=== PATIENT | female | born 1960 | race Caucasian/White ===

== ENCOUNTER 2017-03-17 07:26 | Day surgery (SDC) | payer OTHER ==
[~2017-03-17 07:26] MED LIST: FENTANYL 250 MCG/5 ML AMP IV PRN; LACTATED RINGERS 1,000 ML IV SCH; MIDAZOLAM HCL 5 MG/5 ML VIAL IV PRN
[2017-03-17] MEDS ORDERED: IV START KIT ONE (07:32)
[2017-03-17] MEDS ORDERED: SODIUM CHLORIDE 0.9% 1,000 ML ONE (07:49)
[2017-03-17] MEDS ORDERED: SODIUM CHLORIDE 0.9% 1,000 ML IV SCH (08:00)
--- NOTE | 2017-03-19 09:32 | SURGPATH ---
[facility] [address] [place] [id number] Patient Name: ANIBAL ALARCON MR#: [id number] : 1960 Gender: F Specimen #: [id number] Collected: 03/17/2017 Received: 03/18/2017 Reported: 03/19/2017 Submitting Phys: SADAF TRIVEDI Copy To Phys: [facility] RAMILA VALDEZ Clinical History / Pre-Operative Diagnosis: History of colon polyps; change in bowel pattern; family history of colon polyps and CA Specimen Source / Surgical Procedure Performed: #1-sigmoid polyp at 22 cm; #2-descending colon polyp at 45 cm; #3-midtransverse colon polyp; #4-sigmoid polyp at 10 cm Interpretation: 1, 2, 3. SIGMOID POLYP AT 22 CM, DESCENDING COLON POLYP AT 45 CM, MID TRANSVERSE COLON POLYP, BIOPSIES: - HYPERPLASTIC POLYPS 4. SIGMOID COLON POLYP AT 10 CM, BIOPSY: - NO PATHOLOGIC DIAGNOSIS Electronically Signed Out Micah Jaquez M.D. Gross Description: #1 The specimen is received in a formalin filled container labeled with the patient's name and "sigmoid polyp at 22 cm". A polypoid weiss biopsy is 0.5 x 0.3 x 0.3 cm. Bisected. Totally embedded in cassette #1. #2 The specimen is received in a formalin filled container labeled with the patient's name and "descending colon polyp at 45 cm". Two polypoid weiss biopsies are 0.4 x 0.3 x 0.1 cm and 0.5 x 0.4 x 0.4 cm. The larger polyp is bisected. Totally embedded in cassette #2. #3 The specimen is received in a formalin filled container labeled with the patient's name and "mid transverse colon polyp". A polypoid weiss biopsy is 0.5-0.3 x 0.3 cm. Bisected. Totally embedded in cassette #3. #4 The specimen is received in a formalin filled container labeled with the patient's name and "sigmoid polyp at 10 cm". Two pale weiss biopsies are 0.2 and 0.3 cm. Totally embedded in cassette #4. Kristal Brooks Microscopic Description: 1, 2, 3. Levels reveal colonic mucosa surfaced by tubular glands with focal hyperplastic features. Adenomatous and malignant features are not present. 4. Levels reveal colonic mucosa with a normal glandular architecture. Ulceration, acute inflammation, crypt abscesses, granulomas, hyperplasia, dysplasia and malignancy are not seen. 1: 20198 2: 17044 3: 31183 4: 22792 K63.5
== END 2017-03-17 09:21 | disposition home or self-care (01) ==
LOC: SDC 07:26
PROVIDERS: ATTEND Internal Medicine Gastroenterology
PROC: 0DBN8ZZ Excision of Sigmoid Colon, Via Natural or Artificial Opening Endoscopic (ICD-10-PCS; principal; 2017-03-17)
PROC: 0DBL8ZZ Excision of Transverse Colon, Via Natural or Artificial Opening Endoscopic (ICD-10-PCS; 2017-03-17)
PROC: 0DBM8ZZ Excision of Descending Colon, Via Natural or Artificial Opening Endoscopic (ICD-10-PCS; 2017-03-17)
DX: K63.5 Polyp of colon (principal); E03.9 Hypothyroidism, unspecified; I10 Essential (primary) hypertension; E11.9 Type 2 diabetes mellitus without complications; Z86.010 Personal history of colon polyps; Z80.0 Family history of malignant neoplasm of digestive organs; Z83.71 Family history of colonic polyps; F17.210 Nicotine dependence, cigarettes, uncomplicated; Z88.2 Allergy status to sulfonamides; Z79.899 Other long term (current) drug therapy